=== PATIENT | male | born 2000 | race African-American/Black ===

== ENCOUNTER 2022-05-04 23:20 | Inpatient (IN) ==
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
[2022-05-05 00:01] LABS: Basophils # (auto) 0.01 K/uL (0-0.2); Basophils % (auto) 0.1 %; Hematocrit (blood only) 42.7 % (42-52); Hemoglobin 14.8 g/dL (14.0-18.0); Immature Granulocytes # (auto) 0.04 K/uL (0.00-0.02); Immature Granulocytes % (auto) 0.3 %; Lymphocytes # (auto) 1.15 K/uL (1.2-3.4); Mean Corpuscular Hemoglobin 32.5 pg (25-34); Mean Corpuscular Hgb Conc 34.7 g/dL (32-36); Mean Corpuscular Volume 93.6 fL (80-100); Mean Platelet Volume 11.3 fL (7.4-10.4); Monocytes # (auto) 0.25 K/uL (0.11-0.59); Neutrophils # (auto) 11.33 K/uL (1.4-6.5); Neutrophils % (auto) 88.6 %; Platelet Count 308 K/uL (130-400); RDW Coefficient of Variation 12.7 % (11.5-14.5); RDW Standard Deviation 42.9 fL (36.4-46.3); Red Blood Count 4.56 M/uL (4.7-6.1); White Blood Count 12.78 K/uL (4.8-10.8)
[2022-05-05 00:26] LABS: Alanine Aminotransferase 65 U/L (7-52); Albumin Globulin Ratio 1.7 (0.9-2); Albumin Level 5.2 gm/dl (3.4-5.0); Alkaline Phosphatase 100 U/L (34-104); Anion Gap 17 (3-11); Aspartate Aminotransferase 39 U/L (13-39); BUN Creatinine Ratio 9.3 (10-20); Bilirubin,Total 1.6 mg/dl (0.2-1.0); Blood Urea Nitrogen 10 mg/dl (6-23); Calcium 9.5 mg/dl (8.5-10.1); Carbon Dioxide 19 mmol/L (21-32); Chloride 96 mmol/L (98-107); Est GFR (African American) 112.3 ml/min; Est GFR (Non-African American) 96.9 ml/min; Glucose 124 mg/dl (70-99(Fasting)); Potassium 3.3 mmol/L (3.5-5.1); Sodium 132 mmol/L (136-145); Total Protein 8.2 gm/dl (6.0-8.3)
[2022-05-05 00:32] LABS: Appearance Urine Clear (Clear); Bilirubin Urine Negative (Negative); Blood Urine Negative (Negative); Color Urine Yellow; Glucose Urine UA Negative (Negative); Ketones Urine 4+ (Negative); Leukocyte Esterase Urine Negative (Negative); Nitrite Urine Negative (Negative); Protein Urine Negative (Negative); Specific Gravity Urine 1.014 (1.000-1.030); Urobilinogen Urine Negative (Negative)
[2022-05-05 00:39] LABS: Acetaminophen < 3 ug/ml (10-30); Salicylate < 3.0 mg/dl (3.0-30)
[2022-05-05 01:15] LABS: Amphetamines+Metham, Urine Neg (Neg); Barbiturates, Urine Neg (Neg); Benzodiazepine, Urine Neg (Neg); Cocaine, Urine Neg (Neg); MDMA (Ecstacy), Urine Neg (Neg); Methadone, Urine Neg (Neg); Opiate, Urine Neg (Neg); Phencyclidine, Urine Neg (Neg)
[2022-05-05] MEDS ORDERED: ACETAMINOPHEN 325 MG TAB PO PRN (03:07)
[2022-05-05] MEDS ORDERED: SODIUM CHLORIDE 0.65% NA SOLN 45 ML (OCEAN) PRN (03:07)
[2022-05-05] MEDS ORDERED: LORazepam 1 MG TAB PO PRN (03:07)
[2022-05-05] MEDS ORDERED: MAGNESIUM HYDROXIDE SUSP 30 ML UDC PO PRN (03:07)
[2022-05-05] MEDS ORDERED: ALUMINUM/MAGNESIUM SUSP 30 ML UDC PO PRN (03:07)
[2022-05-05] MEDS ORDERED: BISMUTH SUBSALICYLATE LIQD 236 ML PO PRN (03:07)
[2022-05-05] MEDS: NICOTINE 21 MG/24 HR TDSY TD SCH (14:05)
[2022-05-05] MEDS ORDERED: buPROPion HCl 75 MG TABLET PO ONE (14:16)
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
[2022-05-06] MEDS: hydrOXYzine HCl 25 MG TAB PO PRN ×2 (02:26→22:26)
[2022-05-06 07:53] LABS: Potassium 4.2 mmol/L (3.5-5.1)
[2022-05-06] MEDS: buPROPion SR 150 MG TABCR PO SCH (09:06)
[2022-05-06] MEDS: NICOTINE 21 MG/24 HR TDSY TD SCH (11:38)
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
[2022-05-06] MEDS ORDERED: LORazepam 1 MG TAB PO PRN (17:46)
[2022-05-07] MEDS: NICOTINE 21 MG/24 HR TDSY TD SCH (09:30)
[2022-05-07] MEDS: buPROPion SR 150 MG TABCR PO SCH (09:30)
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
[2022-05-07] MEDS: hydrOXYzine HCl 25 MG TAB PO SCH (22:10)
[2022-05-07 23:27] LABS: Marijuana Quant, GCMS Urine 3986 ng/mL (<5)
[2022-05-08] MEDS: hydrOXYzine HCl 25 MG TAB PO PRN (07:38)
[2022-05-08] MEDS ORDERED: LORazepam 1 MG TAB PO STA (08:21)
[2022-05-08] MEDS: NICOTINE 21 MG/24 HR TDSY TD SCH (09:55)
[2022-05-08] MEDS: buPROPion SR 150 MG TABCR PO SCH (09:55)
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
[2022-05-08] MEDS: hydrOXYzine HCl 25 MG TAB PO SCH (21:04)
[2022-05-09] MEDS: buPROPion SR 150 MG TABCR PO SCH (08:37)
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
[2022-05-09] MEDS: NICOTINE 21 MG/24 HR TDSY TD SCH (09:39)
[2022-05-09] MEDS ORDERED: ARIPiprazole 5 MG TAB PO ONE (10:27)
[2022-05-09] MEDS: LORazepam 1 MG TAB PO PRN ×2 (12:45→21:19)
[2022-05-09] MEDS: hydrOXYzine HCl 25 MG TAB PO SCH (21:19)
[2022-05-10] MEDS: ARIPiprazole 5 MG TAB PO SCH (09:30)
[2022-05-10 09:43] LABS: Chol HDL Ratio 4.9 (0-5)
[2022-05-10] MEDS: NICOTINE 21 MG/24 HR TDSY TD SCH (09:59)
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
[2022-05-10] MEDS: hydrOXYzine HCl 25 MG TAB PO SCH (22:01)
[2022-05-11] MEDS: LORazepam 1 MG TAB PO PRN (03:11)
[2022-05-11] MEDS: ARIPiprazole 5 MG TAB PO SCH (08:14)
[2022-05-11] MEDS: NICOTINE 21 MG/24 HR TDSY TD SCH (08:18)
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
[2022-05-11] MEDS ORDERED: traZODone HCL 50 MG TAB PO PRN (13:22)
[2022-05-11] MEDS: traZODone HCL 100 MG TAB PO PRN (20:58)
[2022-05-12] MEDS: hydrOXYzine HCl 25 MG TAB PO PRN (00:17)
[2022-05-12] MEDS: ARIPiprazole 5 MG TAB PO SCH (07:59)
[2022-05-12] MEDS: NICOTINE 21 MG/24 HR TDSY TD SCH (08:01)
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
[2022-05-12] MEDS: traZODone HCL 100 MG TAB PO PRN (21:54)
[2022-05-13] MEDS: ARIPiprazole 5 MG TAB PO SCH (08:06)
[2022-05-13] MEDS: NICOTINE 21 MG/24 HR TDSY TD SCH (08:07)
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
[2022-05-13] MEDS: hydrOXYzine HCl 25 MG TAB PO PRN (13:14)
[2022-05-13] MEDS: traZODone HCL 100 MG TAB PO PRN (21:45)
[2022-05-14] MEDS: ARIPiprazole 5 MG TAB PO SCH (08:10)
[2022-05-14] MEDS: NICOTINE 21 MG/24 HR TDSY TD SCH (08:11)
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
== END 2022-05-14 10:57 | disposition home or self-care (01) | DRG 885 ==
LOC: ED 23:20 → 3S 05-05 03:07